=== PATIENT | female | born 1950 | race Caucasian/White ===

== ENCOUNTER 2017-12-29 06:03 | Emergency (ER) | payer OTHER, MEDICAID ==
[~2017-12-29] VITALS: Ht 157.5 cm; Wt 62.0 kg
[2017-12-29] MEDS ORDERED: MAGNESIUM CITRATE 300ML SOLUTION PO ONE (07:15)
[2017-12-29 07:56] LABS: CHLORIDE 95 mEq/L (98-107)
[2017-12-29 07:58] LABS: HEMATOCRIT. 35.6 % (36.0-48.0); HEMOGLOBIN. 12.6 g/dL (12.0-16.0); MEAN CORPUSCULAR HEMOGLOBIN 30.7 pg (28.0-32.0); MEAN CORPUSCULAR VOLUME 86.4 fL (81.0-99.0); PLATELET 358 x1000/uL (130-400); RED BLOOD CELL COUNT 4.12 mill/uL (4.2-5.4); RED CELL DISTRIBUTION WIDTH 12.6 % (11.6-14.6)
[2017-12-29] MEDS ORDERED: SODIUM CHLORIDE 0.9% 1,000 ML IV ONE (08:30)
[2017-12-29 09:18] LABS: PLATELET ESTIMATE NORMAL
[2017-12-29 09:23] LABS: CLARITY URINE CLOUDY (CLEAR); COLOR URINE DARK YELLOW (YELLOW); KETONES URINE TRACE (NEGATIVE); LEUKOCYTE ESTERASE URINE 2+ (NEGATIVE); NITRITE URINE NEGATIVE (NEGATIVE); OCCULT BLOOD URINE NEGATIVE (NEGATIVE); PH URINE 5.5 (4.5-8.0); PROTEIN URINE 1+ (NEGATIVE); SPECIFIC GRAVITY URINE 1.017 (1.005-1.030)
[2017-12-29 14:32] VITALS: BP 130/76
[2017-12-29] MEDS ORDERED: IOHEXOL-300 100 ML BOTTLE ONE (15:06)
== END 2017-12-29 14:34 | disposition home or self-care (01) ==
LOC: ER 06:03
DX: K59.00 Constipation, unspecified (principal); N39.0 Urinary tract infection, site not specified; I10 Essential (primary) hypertension
CPT/HCPCS: 36415; 74018; 74177; 80053; 81003; 85007; 85027; 99285; J7030; Q9967